=== PATIENT | male | born 1955 | race Caucasian/White ===

== ENCOUNTER 2021-10-02 08:40 | Day surgery (SDC) | payer OTHER ==
--- NOTE | 2021-10-01 12:02 | RAD REPORT ---
EXAM DESCRIPTION: RAD - Chest Pa And Lat (2 Views) - 10/01/2021 11:55 am CLINICAL HISTORY: PRE OP Chest pain. COMPARISON: No comparisons FINDINGS: The lungs are clear. The heart is normal in size. No displaced fractures. IMPRESSION: No acute or concerning finding suspected.
[2021-10-01 12:10] LABS: Absolute Lymphocytes (CBC) 2.4 K/uL (0.7-4.9); Hematocrit 45.1 % (39.6-49.0); Lymphocytes % 31.7 % (15.3-44.8); MPV 7.9 fL (7.6-11.3)
[2021-10-01 12:25] LABS: Potassium 5.5 mmol/L (3.5-5.1)
[2021-10-01 14:01] LABS: Specific Gravity 1.015 (1.005-1.030); Urine Bilirubin Negative (Negative); Urine Blood Negative (Negative); Urine Clarity Clear (Clear); Urine Color Yellow (Yellow); Urine Glucose Negative (Negative); Urine Protein Negative (Negative); Urine Urobilinogen 0.2 mg/dL (0.2-1.0); Urine pH 5.5 (5.0-7.0)
[2021-10-01 14:07] LABS: SARS-CoV-2 Antigen Rapid Res Negative (Negative)
[2021-10-01 14:13] LABS: Urine Bacteria None Seen /HPF (<20); Urine RBC None Seen /HPF (None Seen)
--- NOTE | 2021-10-02 08:15 | EKG ---
Test Date: 2021-10-01 Test Time: 11:43:21 Brand Specialist: GI MEASUREMENT RESULTS: Intervals: Rate: 65 NJ: 124 QRSD: 90 QT: 412 QTc: 428 [place]: P: 37 NJ: 124 QRS: -24 T: 2 INTERPRETIVE STATEMENTS: Normal sinus rhythm Minimal voltage criteria for LVH, may be normal variant Borderline ECG No previous ECG available for comparison Electronically Signed On 10-02-21 08:11:20 CDT by Liu Yousif
[2021-10-02] MEDS ORDERED: Ringers Lactate 1,000 ML IV ONE (09:09)
[2021-10-02] MEDS ORDERED: CEFAZOLIN 2 GM IN 0.9% NACL 2 GM/100 ML BAG ONE (09:09)
[2021-10-02] MEDS ORDERED: FENTANYL CITR 100 MCG/2 ML ONE (10:49)
[2021-10-02] MEDS ORDERED: MIDAZOLAM HCL 2 MG/2 ML INJ ONE (10:49)
[2021-10-02] MEDS ORDERED: LIDOCAINE 1% MPF 5 ML VIAL ONE (10:49)
[2021-10-02] MEDS ORDERED: propofoL 200 MG/20 ML VIAL IV ONE (10:49)
[2021-10-02] MEDS ORDERED: EPHEDRINE SULF 50 MG/ML VIAL ONE (12:04)
[2021-10-02] MEDS ORDERED: PHENAZOPYRIDINE 100MG TAB PO ONE ×2 (12:43→13:24)
[2021-10-02] MEDS ORDERED: CODEINE 30MG/APAP 300MG TAB PO PRN (12:43)
[2021-10-02 12:56] VITALS: TEMP 96.8
[2021-10-02] MEDS ORDERED: CODEINE 30MG/APAP 300MG TAB ONE (13:24)
[2021-10-02 14:28] VITALS: BP 154/104; O2SAT 100
--- NOTE | 2021-10-02 23:39 | OP ---
Surgeon: ELENO MCKEON Preoperative Diagnoses: 1.Benign prostatic hypertrophy with lower urinary tract obstruction. 2.Elevated prostate-specific antigen. Postoperative Diagnoses: 1.Benign prostatic hypertrophy with lower urinary tract obstruction. 2.Elevated prostate-specific antigen. Principal Procedure: Prostatic urethral lift/UroLift. Indication For Procedure: Mr. Vaughn is a 66-year-old gentleman who presented to the [facility] with an elevated PSA on Flomax, but with a low risk of any significant prostate cancer and a PSA chad t did resolve to a baseline of 4.2 with a 46.4% free, indicative of a significant degree of ongoing i nflammation. Additional prostatic testing with 4K score/Select MDx testing revealed a low risk of an y significant prostate cancer and thus he was counseled on options to manage his obstructive urinary symptoms and was a reasonable candidate for the UroLift. Procedure In Detail: The patient was consented in the preoperative holding area before being transfe rred to the operative suite where general anesthesia was induced. He was given Ancef 2 g IV antimicr obial prophylaxis and Pneumo boots were provided for DVT prophylaxis. He was placed in the lithotomy position, padded and secured to the table appropriately and his genitalia was prepped using Hibiclen s before he was draped in standard fashion. The case was then begun using the UroLift 20-Sinhala obtu rator to traverse the urethra and into the bladder with relative ease. While there was elevation of the bladder neck, there was no significant intravesically projecting median lobe. There was also no significant anterior lobar overhang beyond the elevated median bar. There was lateral lobar hypertro phy extending to the verumontanum. As a result, the cystoscope bridge was replaced with the UroLift delivery device and the first treatment site identified was on the left side approximately 2 cm dista l to the bladder neck in the anterolateral wall of the prostate. The delivery device was angled late rally approximately 20 degrees and the trigger was pulled, deploying a needle containing the implant through the prostate. The needle was advanced along with compression of the prostate and then the ca psular tab was seated on the outside of the prostate. The implant was then tensioned to assure capsu lar seating and removal of slack monofilament. The device was then angled back toward the midline an d slowly advanced about 2-3 mm until cystoscopic verification of the monofilament was centered in the delivery bay. The urethral end piece was then affixed to the monofilament, thereby tailoring the si ze of the implant, and excess filament was then severed. The delivery device was then readvanced int o the bladder. A new delivery device was then used to replace the old one, and a similar implant was positioned 2 cm distal to the bladder neck on the right side in the anterolateral surface of the pro state. I then placed 2 additional implants in the left anterolateral and the right anterolateral jere face of the prostate at the level of the verumontanum. I then surveyed the prostatic urethra using t he visual obturator and there was residual intraluminal projection of tissue between the implants denisse harmeet at the bladder neck and at the verumontanum while there was a nicely patent anterior channel at t he bladder neck even with the bladder empty and decompressing. As a result, I placed an additional 2 implants, one on the left side in between the bladder neck and the verumontanum implant, and another implant was placed on the right side anterolaterally between the 2 implants at the bladder neck and at the verumontanum. The visual obturator was then replaced and the prostatic urethral channel was a gain surveyed, and at this time there was a nice continuous anterior channel from the verumontanum th rough the bladder neck into the bladder. As a result, because of some significant friability of the left lateral lobar tissue, I then passed a wire into his bladder to ensure proper placement of a subs equent Eastman catheter and ultimately placed a 20-Sinhala coude-tipped catheter into his bladder with e ase and with 20 cc of sterile water in the balloon. I then irrigated his bladder using a catheter ti p syringe in several hundred cc of normal saline and the efflux was light pink. No clots were aspira ericka. As a result, the catheter was connected to a leg bag, and he was taken out of the lithotomy pos ition. He was awakened from general anesthesia, transferred to a stretcher, and then transferred to the recovery room in good condition. Complications: None. Discharge Disposition: Given the friability of the prostate tissue on the right side and the potenti al for development of a false passage within that tissue with blind placement of a catheter, I am goi ng to recommend he keep the catheter for 2-3 days before completing the voiding trial at home. So, i nstead of removing it tomorrow morning at 7 a.m., I am going to request that he wait and remove it on or Friday. PHU/ZABRINA Voice ID: [id number] Report ID: [id number]
== END 2021-10-02 14:40 | disposition home or self-care (01) ==
LOC: OR 08:40
PROVIDERS: ATTEND Urology
PROC: 0T7D8DZ Dilation of Urethra with Intraluminal Device, Via Natural or Artificial Opening Endoscopic (ICD-10-PCS; principal; 2021-10-02 10:30)
DX: N40.1 Benign prostatic hyperplasia with lower urinary tract symptoms (principal); R97.20 Elevated prostate specific antigen [PSA]; Z20.822 Contact with and (suspected) exposure to COVID-19; I10 Essential (primary) hypertension; E78.5 Hyperlipidemia, unspecified; D35.2 Benign neoplasm of pituitary gland
CPT/HCPCS: 93005; 87088; 85025; 81001; 87086; 80048; 36415; 71046; 87811; 52441; 52442 ×5; J2704; J2250; J3010; J0690; J7120